=== PATIENT | male | born 1955 | race Caucasian/White ===

== ENCOUNTER 2019-09-25 09:24 | Observation (INO) ==
[2019-09-25] MEDS ORDERED: Aspirin 81 MG TAB.CHEW PO ONE (09:31)
[2019-09-25 10:04] LABS: Hematocrit 47.1 % (37.5-50.1); Hemoglobin 16.3 g/dL (12.9-16.9); Immature Granulocytes % 0.5 % (0-4); Mean Corpuscular HGB Conc 34.6 g/dL (31.6-35.5); Mean Corpuscular Hemoglobin 29.6 pg (28.0-33.3); Mean Corpuscular Volume 85.6 fL (83.0-100.0); Mean Platelet Volume 9.2 fL (9.4-12.4); Platelet Count 200 K/mcL (140-400); Red Cell Distribution Width 12.6 % (11.5-14.5); Segmented Neutrophils % 67.2 %; White Blood Count 7.6 K/mcL (4.3-11.1)
[2019-09-25 10:05] LABS: Basophils # 0.1 K/mcL (0.0-0.2); Basophils % 0.7 %; Eosinophils # 0.1 K/mcL (0.0-0.6); Eosinophils % 1.4 %; Lymphocytes # 1.7 K/mcL (0.6-4.6); Lymphocytes % 22.1 %; Monocytes # 0.6 K/mcL (0.0-1.3); Monocytes % 8.1 %; Neutrophils # 5.1 K/mcL (1.6-8.9)
[2019-09-25] MEDS: Nitroglycerin 0.4 MG TAB.SUBL SL SCH ×2 (10:16→15:41)
[2019-09-25 10:27] LABS: BUN/Creatinine Ratio 26 (6-26); Blood Urea Nitrogen 22 mg/dL (8-23); Calcium 9.3 mg/dL (8.6-10.3); Carbon Dioxide 25 mEq/L (23-29); Chloride 108 mEq/L (98-107); Glucose 107 mg/dL (70-105); Osmolality,Calculated 292 (280-300); Potassium 4.3 mEq/L (3.5-5.1); Sodium 139 mEq/L (136-145); Troponin I < 0.03 ng/mL (< 0.04); eGFR For African Americans > 60 (> 60); eGFR For Non-African Americans > 60 (> 60)
[2019-09-25 10:45] LABS: Prothrombin Time 11.7 Seconds (9.4-12.1)
[2019-09-25] MEDS ORDERED: Ondansetron 4 MG/2 ML VIAL IVP PRN (10:57)
[2019-09-25] MEDS ORDERED: Naloxone 0.4 MG/ML INJ IVP PRN (10:57)
[2019-09-25] MEDS ORDERED: Perflutren Lipid Microsphere 1.3 ML in 0.9 % Sodium Chloride 8.7 ML IVP ONE (16:34)
[2019-09-25] MEDS ORDERED: *HR* Enoxaparin 120 MG/0.8 ML SYRINGE SQ SCH (21:00)
[2019-09-25] MEDS: Gabapentin 300 MG CAPSULE PO SCH (23:15)
[2019-09-26 01:06] LABS: Basophils % 0.3 %; Eosinophils # 0.2 K/mcL (0.0-0.6); Eosinophils % 1.8 %; Hematocrit 43.3 % (37.5-50.1); Hemoglobin 14.8 g/dL (12.9-16.9); Immature Granulocytes % 0.3 % (0-4); Lymphocytes # 1.9 K/mcL (0.6-4.6); Lymphocytes % 21.8 %; Mean Corpuscular HGB Conc 34.2 g/dL (31.6-35.5); Mean Corpuscular Hemoglobin 29.5 pg (28.0-33.3); Mean Corpuscular Volume 86.3 fL (83.0-100.0); Mean Platelet Volume 9.3 fL (9.4-12.4); Monocytes # 0.7 K/mcL (0.0-1.3); Monocytes % 7.4 %; Neutrophils # 6.1 K/mcL (1.6-8.9); Platelet Count 180 K/mcL (140-400); Red Blood Count 5.02 M/mcL (4.19-5.50); Red Cell Distribution Width 12.8 % (11.5-14.5); Segmented Neutrophils % 68.4 %; White Blood Count 8.9 K/mcL (4.3-11.1)
[2019-09-26 01:28] LABS: BUN/Creatinine Ratio 27 (6-26); Blood Urea Nitrogen 22 mg/dL (8-23); Carbon Dioxide 23 mEq/L (23-29); Chloride 109 mEq/L (98-107); Glucose 101 mg/dL (70-105); Magnesium 2.2 mg/dL (1.6-2.6); Osmolality,Calculated 293 (280-300); Potassium 3.9 mEq/L (3.5-5.1); Sodium 140 mEq/L (136-145); eGFR For African Americans > 60 (> 60); eGFR For Non-African Americans > 60 (> 60)
[2019-09-26 07:32] VITALS: BP 134/83
[2019-09-26] MEDS ORDERED: Gabapentin 300 MG CAPSULE PO SCH (09:00)
[2019-09-26] MEDS ORDERED: Aspirin 81 MG TAB.CHEW PO SCH (09:00)
[2019-09-26] MEDS: Gabapentin 300 MG CAPSULE PO SCH (09:03)
== END 2019-09-26 12:06 | disposition left against medical advice (07) ==
LOC: EMEROOARM 09:24 → 3BNU 09:24
PROVIDERS: ADMIT Student in an Organized Health Care Education/Training Program; ATTEND Student in an Organized Health Care Education/Training Program

== ENCOUNTER 2021-10-27 08:33 | Inpatient (IN) ==
[2021-10-27] MEDS ORDERED: DilTIAZem 125 MG in D5% in Water 100 ML IVC SCH (09:00)
[2021-10-27 09:14] LABS: Basophils % 0.4 %; Eosinophils # 0.1 K/mcL (0.0-0.6); Eosinophils % 1.9 %; Hematocrit 43.7 % (37.5-50.1); Hemoglobin 14.6 g/dL (12.9-16.9); Immature Granulocytes % 0.3 % (0-4); Lymphocytes # 1.7 K/mcL (0.6-4.6); Lymphocytes % 24.4 %; Mean Corpuscular HGB Conc 33.4 g/dL (31.6-35.5); Mean Corpuscular Hemoglobin 29.9 pg (28.0-33.3); Mean Corpuscular Volume 89.4 fL (83.0-100.0); Mean Platelet Volume 9.3 fL (9.4-12.4); Monocytes # 0.5 K/mcL (0.0-1.3); Monocytes % 7.7 %; Neutrophils # 4.4 K/mcL (1.6-8.9); Platelet Count 182 K/mcL (140-400); Red Blood Count 4.89 M/mcL (4.19-5.50); Red Cell Distribution Width 12.7 % (11.5-14.5); Segmented Neutrophils % 65.3 %; White Blood Count 6.8 K/mcL (4.3-11.1)
[2021-10-27 09:37] LABS: BUN/Creatinine Ratio 23 (6-26); Blood Urea Nitrogen 19 mg/dL (8-23); Calcium 9.1 mg/dL (8.6-10.3); Carbon Dioxide 24 mEq/L (23-29); Chloride 108 mEq/L (98-107); Glucose 112 mg/dL (70-105); Osmolality,Calculated 289 (280-300); Sodium 138 mEq/L (136-145); Troponin I < 0.03 ng/mL (< 0.04); eGFR For African Americans > 60 (> 60); eGFR For Non-African Americans > 60 (> 60)
[2021-10-27] MEDS ORDERED: Furosemide 40 MG/4 ML VIAL IVP ONE (10:54)
[2021-10-27] MEDS ORDERED: Perflutren Lipid Microsphere 1.3 ML in 0.9 % Sodium Chloride 8.7 ML IVP PRN (12:40)
[2021-10-27] MEDS ORDERED: *HR* Rivaroxaban 10 MG TABLET PO SCH (12:45)
[2021-10-27] MEDS ORDERED: Acetaminophen 325 MG TABLET PO ONE (13:01)
[2021-10-27] MEDS: DilTIAZem 50 MG/50 ML IV.SOLN IVC SCH ×2 (15:41→19:54)
[2021-10-27] MEDS: Acetaminophen 325 MG TABLET PO PRN (16:19)
[2021-10-28 02:06] LABS: Hemoglobin 14.4 g/dL (12.9-16.9); Mean Corpuscular HGB Conc 32.7 g/dL (31.6-35.5); Mean Corpuscular Hemoglobin 29.4 pg (28.0-33.3); Mean Platelet Volume 9.5 fL (9.4-12.4); Platelet Count 198 K/mcL (140-400); Red Blood Count 4.89 M/mcL (4.19-5.50); Red Cell Distribution Width 12.6 % (11.5-14.5); White Blood Count 7.7 K/mcL (4.3-11.1)
[2021-10-28 02:27] LABS: Alanine Aminotransferase 49 Units/L (7-52); Albumin 3.9 g/dL (3.5-5.7); Albumin/Globulin Ratio 1.6 (1.1-2.2); Alkaline Phosphatase 64 Units/L (34-104); Aspartate Amino Transferase 23 Units/L (13-39); BUN/Creatinine Ratio 22 (6-26); Bilirubin,Total 0.5 mg/dL (0.3-1.0); Blood Urea Nitrogen 21 mg/dL (8-23); Calcium 9.2 mg/dL (8.6-10.3); Carbon Dioxide 26 mEq/L (23-29); Chloride 106 mEq/L (98-107); Globulin 2.4 g/dL (2.4-3.5); Glucose 102 mg/dL (70-105); Magnesium 2.2 mg/dL (1.6-2.6); Osmolality,Calculated 297 (280-300); Phosphorous 3.6 mg/dL (2.7-4.5); Potassium 3.8 mEq/L (3.5-5.1); Sodium 142 mEq/L (136-145); Total Protein 6.3 g/dL (6.4-8.9); eGFR For African Americans > 60 (> 60); eGFR For Non-African Americans > 60 (> 60)
[2021-10-28] MEDS: Isosorbide MONOnitrate (24 HR) 30 MG TAB.ER.24H PO SCH (07:54)
[2021-10-28] MEDS ORDERED: *HR* Rivaroxaban 10 MG TABLET PO SCH (09:00)
[2021-10-28] MEDS: Venlafaxine XR (24 HR) 150 MG CAP.ER.24H PO SCH (09:12)
[2021-10-28] MEDS ORDERED: Aspirin 325 MG TABLET PO ONE (09:22)
[2021-10-28] MEDS: Metoprolol XL (24 HR) Succ 25 MG TAB.ER.24H PO SCH ×2 (13:21→20:18)
[2021-10-28] MEDS ORDERED: Isovue-370 500 ML BOTTLE IVP ONE (13:50)
[2021-10-29 02:00] LABS: Basophils % 0.5 %; Eosinophils # 0.3 K/mcL (0.0-0.6); Eosinophils % 3.7 %; Hematocrit 44.2 % (37.5-50.1); Hemoglobin 14.6 g/dL (12.9-16.9); Immature Granulocytes % 0.4 % (0-4); Lymphocytes # 2.2 K/mcL (0.6-4.6); Lymphocytes % 29.3 %; Mean Corpuscular Hemoglobin 29.7 pg (28.0-33.3); Mean Platelet Volume 9.3 fL (9.4-12.4); Monocytes # 0.7 K/mcL (0.0-1.3); Monocytes % 9.6 %; Neutrophils # 4.3 K/mcL (1.6-8.9); Platelet Count 202 K/mcL (140-400); Red Blood Count 4.91 M/mcL (4.19-5.50); Red Cell Distribution Width 12.7 % (11.5-14.5); Segmented Neutrophils % 56.5 %; White Blood Count 7.5 K/mcL (4.3-11.1)
[2021-10-29 02:15] LABS: BUN/Creatinine Ratio 25 (6-26); Blood Urea Nitrogen 23 mg/dL (8-23); Calcium 9.3 mg/dL (8.6-10.3); Carbon Dioxide 24 mEq/L (23-29); Chloride 107 mEq/L (98-107); Glucose 99 mg/dL (70-105); Osmolality,Calculated 292 (280-300); Potassium 4.1 mEq/L (3.5-5.1); Sodium 139 mEq/L (136-145); eGFR For African Americans > 60 (> 60); eGFR For Non-African Americans > 60 (> 60)
[2021-10-29 08:48] LABS: Chol/HDL Ratio 3.8 (0-4.9); Cholesterol 177 mg/dL (< 200); HDL Cholesterol 46 mg/dL (40-59); LDL Cholesterol,Calculated 113 mg/dL (< 100); Triglycerides 89 mg/dL (< 150)
[2021-10-29] MEDS: Metoprolol XL (24 HR) Succ 25 MG TAB.ER.24H PO SCH ×2 (09:14)
[2021-10-29] MEDS: Isosorbide MONOnitrate (24 HR) 30 MG TAB.ER.24H PO SCH (09:15)
[2021-10-29] MEDS: Aspirin 81 MG TAB.CHEW PO SCH (09:15)
[2021-10-29] MEDS: Venlafaxine XR (24 HR) 150 MG CAP.ER.24H PO SCH (09:15)
[2021-10-29 10:27] LABS: Estimated Average Glucose 123 mg/dl; Hemoglobin A1C 5.9 %
[2021-10-29] MEDS: *HR* Rivaroxaban 10 MG TABLET PO SCH ×2 (12:09→17:28)
[2021-10-29] MEDS ORDERED: Metoprolol XL (24 HR) Succ 25 MG TAB.ER.24H PO SCH (21:00)
[2021-10-30 05:29] LABS: BUN/Creatinine Ratio 26 (6-26); Blood Urea Nitrogen 23 mg/dL (8-23); Calcium 9.1 mg/dL (8.6-10.3); Carbon Dioxide 26 mEq/L (23-29); Chloride 107 mEq/L (98-107); Glucose 97 mg/dL (70-105); Osmolality,Calculated 290 (280-300); Potassium 4.1 mEq/L (3.5-5.1); Sodium 138 mEq/L (136-145); eGFR For African Americans > 60 (> 60); eGFR For Non-African Americans > 60 (> 60)
[2021-10-30 07:01] LABS: White Blood Count 7.2 K/mcL (4.3-11.1)
[2021-10-30 07:02] LABS: Basophils % 0.6 %; Eosinophils # 0.2 K/mcL (0.0-0.6); Eosinophils % 2.9 %; Hematocrit 46.5 % (37.5-50.1); Hemoglobin 15.3 g/dL (12.9-16.9); Immature Granulocytes % 0.4 % (0-4); Lymphocytes # 1.8 K/mcL (0.6-4.6); Lymphocytes % 25.6 %; Mean Corpuscular HGB Conc 32.9 g/dL (31.6-35.5); Mean Corpuscular Hemoglobin 29.3 pg (28.0-33.3); Mean Corpuscular Volume 89.1 fL (83.0-100.0); Mean Platelet Volume 9.5 fL (9.4-12.4); Monocytes # 0.6 K/mcL (0.0-1.3); Monocytes % 8.4 %; Neutrophils # 4.5 K/mcL (1.6-8.9); Platelet Count 211 K/mcL (140-400); Red Blood Count 5.22 M/mcL (4.19-5.50); Red Cell Distribution Width 12.9 % (11.5-14.5); Segmented Neutrophils % 62.1 %
[2021-10-30] MEDS ORDERED: Metoprolol XL (24 HR) Succ 25 MG TAB.ER.24H PO SCH (09:00)
[2021-10-30] MEDS: Venlafaxine XR (24 HR) 150 MG CAP.ER.24H PO SCH (09:46)
[2021-10-30] MEDS: Aspirin 81 MG TAB.CHEW PO SCH (09:47)
[2021-10-30] MEDS: *HR* Amiodarone 200 MG TABLET PO SCH ×2 (14:07→20:37)
[2021-10-30] MEDS: *HR* Rivaroxaban 10 MG TABLET PO SCH (17:28)
[2021-10-30] MEDS ORDERED: *HR* Metoprolol 5 MG/5 ML VIAL IVP ONE (17:56)
[2021-10-30] MEDS: Metoprolol XL (24 HR) Succ 25 MG TAB.ER.24H PO SCH (20:37)
[2021-10-30] MEDS ORDERED: Morphine Sulfate 2 MG/ML SYRINGE IVP ONE (22:26)
[2021-10-30] MEDS: Acetaminophen 325 MG TABLET PO PRN (22:40)
[2021-10-31] MEDS: lisinopriL 5 MG TABLET PO SCH ×2 (08:30→08:53)
[2021-10-31] MEDS: Aspirin 81 MG TAB.CHEW PO SCH (08:30)
[2021-10-31] MEDS: Venlafaxine XR (24 HR) 150 MG CAP.ER.24H PO SCH (08:30)
[2021-10-31] MEDS: *HR* Amiodarone 200 MG TABLET PO SCH ×3 (08:30→20:16)
[2021-10-31] MEDS: Isosorbide MONOnitrate (24 HR) 30 MG TAB.ER.24H PO SCH (08:30)
[2021-10-31] MEDS: Metoprolol XL (24 HR) Succ 25 MG TAB.ER.24H PO SCH ×2 (08:30→17:47)
[2021-10-31] MEDS: *HR* Rivaroxaban 10 MG TABLET PO SCH (17:46)
[2021-10-31] MEDS: Acetaminophen 325 MG TABLET PO PRN (20:21)
[2021-11-01] MEDS: Metoprolol XL (24 HR) Succ 25 MG TAB.ER.24H PO SCH ×2 (08:12→20:55)
[2021-11-01] MEDS: Venlafaxine XR (24 HR) 150 MG CAP.ER.24H PO SCH (08:12)
[2021-11-01] MEDS: *HR* Amiodarone 200 MG TABLET PO SCH ×3 (08:12→20:55)
[2021-11-01] MEDS: lisinopriL 5 MG TABLET PO SCH (08:12)
[2021-11-01] MEDS: Aspirin 81 MG TAB.CHEW PO SCH (08:12)
[2021-11-01] MEDS: Isosorbide MONOnitrate (24 HR) 30 MG TAB.ER.24H PO SCH (08:12)
[2021-11-01] MEDS ORDERED: *HR* FentaNYL (PF) 100 MCG/2 ML VIAL IVP PRN (10:24)
[2021-11-01] MEDS ORDERED: 0.9 % Sodium Chloride 500 ML IVC ONE (10:25)
[2021-11-01] MEDS ORDERED: *HR* Midazolam HCl 5 MG/5 ML VIAL IVP PRN (10:25)
[2021-11-01] MEDS: *HR* Rivaroxaban 10 MG TABLET PO SCH (16:49)
[2021-11-02] MEDS: Aspirin 81 MG TAB.CHEW PO SCH (06:55)
[2021-11-02] MEDS: Venlafaxine XR (24 HR) 150 MG CAP.ER.24H PO SCH (06:55)
[2021-11-02] MEDS: Isosorbide MONOnitrate (24 HR) 30 MG TAB.ER.24H PO SCH (06:56)
[2021-11-02] MEDS: Metoprolol XL (24 HR) Succ 25 MG TAB.ER.24H PO SCH ×2 (07:08→21:01)
[2021-11-02] MEDS: *HR* Amiodarone 200 MG TABLET PO SCH ×3 (07:08→21:01)
[2021-11-02] MEDS ORDERED: lisinopriL 5 MG TABLET PO SCH (09:00)
[2021-11-02] MEDS ORDERED: 0.9 % Sodium Chloride 500 ML IVC ONE (11:00)
[2021-11-02] MEDS: *HR* Midazolam HCl 5 MG/5 ML VIAL IVP PRN ×3 (11:27→11:32)
[2021-11-02] MEDS: *HR* FentaNYL (PF) 100 MCG/2 ML VIAL IVP PRN ×3 (11:27→11:32)
[2021-11-02] MEDS ORDERED: *HR* Digoxin 0.5 MG/2 ML AMPUL IVP ONE (13:34)
[2021-11-02] MEDS: *HR* Rivaroxaban 10 MG TABLET PO SCH (16:17)
[2021-11-02] MEDS: Acetaminophen 325 MG TABLET PO PRN (17:44)
[2021-11-02] MEDS: *HR* Digoxin 0.5 MG/2 ML AMPUL IVP SCH (21:00)
[2021-11-03] MEDS: *HR* Digoxin 0.5 MG/2 ML AMPUL IVP SCH (02:56)
[2021-11-03 06:53] VITALS: O2SAT 95
[2021-11-03] MEDS: *HR* Amiodarone 200 MG TABLET PO SCH (08:38)
[2021-11-03] MEDS: Isosorbide MONOnitrate (24 HR) 30 MG TAB.ER.24H PO SCH (08:38)
[2021-11-03] MEDS: Acetaminophen 325 MG TABLET PO PRN (08:38)
[2021-11-03] MEDS: Venlafaxine XR (24 HR) 150 MG CAP.ER.24H PO SCH (08:38)
[2021-11-03] MEDS: Aspirin 81 MG TAB.CHEW PO SCH (08:38)
[2021-11-03] MEDS: Metoprolol XL (24 HR) Succ 25 MG TAB.ER.24H PO SCH (08:39)
[2021-11-03] MEDS ORDERED: *HR* Digoxin 0.125 MG TABLET PO SCH (09:15)
[2021-11-03] MEDS ORDERED: lisinopriL 5 MG TABLET PO SCH (09:45)
[2021-11-03 10:16] VITALS: BP 106/68; PULSE 51; TEMP 97.4
[2021-11-03] MEDS ORDERED: *HR* Amiodarone 200 MG TABLET PO SCH (21:00)
== END 2021-11-03 11:42 | disposition home or self-care (01) | DRG 308 ==
LOC: 3BNU 08:33 → EMEROOARM 08:33 → SUATTDRO 13:53 → 3BNU 14:55 → SUATTDRO 10-29 07:50
PROVIDERS: ADMIT Internal Medicine; ATTEND Internal Medicine